=== PATIENT | male | born 1985 | race African-American/Black ===

== ENCOUNTER 2021-01-15 17:28 | Emergency (ER) | payer SELFPAY ==
[~2021-01-15] VITALS: Ht 190.5 cm; Wt 84.0 kg
[2021-01-15 18:15] VITALS: BP 167/88
[2021-01-15] MEDS ORDERED: LIDOCAINE 1% Multi-Dose 20 ML VIAL. ONE (19:12)
[2021-01-15] MEDS: cefTRIAXone IM 500 MG VIAL. IM ONE (19:17)
[2021-01-15] MEDS: AZITHROMYCIN 250 MG TABLET. PO ONE (19:18)
[2021-01-15] MEDS: metroNIDAZOLE 500 MG TABLET PO ONE (19:18)
--- NOTE | 2021-01-15 20:10 | PHYS DOC ---
General Adult EDM: Chief Complaint: SEXUALLY TRANSMITTED DISEASE HPI: HPI: Patient is a 35-year-old male who presents with STI concerns. Patient states that was told she had trichomoniasis and was just treated. Patient is requesting STD testing as well. Patient denies dysuria or discharge. Denies all symptoms. (RADHA CORDOBA APRN) Review of Systems: Review of Systems: Constitutional: Denies fever or chills Eyes: Denies change in visual acuity HENT: Denies nasal congestion or sore throat Respiratory: Denies cough or shortness of breath Cardiovascular: Denies chest pain or edema GI: Denies abdominal pain, nausea, vomiting, bloody stools or diarrhea : Denies dysuria Musculoskeletal: Denies back pain or joint pain Integument: Denies rash Neurologic: Denies headache, focal weakness or sensory changes Endocrine: Denies polyuria or polydipsia Lymphatic: Denies swollen glands Psychiatric: Denies depression or anxiety (RADHA CORDOBA APRN) Current Medications: Current Meds: Current Medications Medications (Trade) Dose Ordered Sig/Patricia Start Time Stop Time Status Last Admin Dose Admin Azithromycin (Zithromax) 1,000 mg 1X ONCE 01/15/21 19:00 01/15/21 19:20 DC 01/15/21 19:18 1,000 MG Ceftriaxone Sodium (Rocephin Im) 500 mg 1X ONCE 01/15/21 19:00 01/15/21 19:20 DC 01/15/21 19:17 500 MG Lidocaine HCl 20 ml STK-MED ONCE 01/15/21 19:12 01/15/21 19:12 DC Metronidazole (Flagyl) 2,000 mg 1X ONCE 01/15/21 19:00 01/15/21 19:20 DC 01/15/21 19:18 2,000 MG (RADHA CORDOBA APRN) Allergies: Allergies: Allergies Coded Allergies Type Severity Reaction Last Updated Verified No Known Drug Allergies 01/15/21 No (RADHA CORDOBA APRN) Physical Exam: PE: Constitutional: Well developed, well nourished, no acute distress, non-toxic appearance. [] HENT: Normocephalic, atraumatic, bilateral external ears normal, oropharynx moist, no oral exudates, nose normal. [] Eyes: PERRLA, EOMI, conjunctiva normal, no discharge. [] Neck: Normal range of motion, no tenderness, supple, no stridor. [] Cardiovascular:Heart rate regular rhythm, no murmur [] Lungs & Thorax: Bilateral breath sounds clear to auscultation [] Abdomen: Bowel sounds normal, soft, no tenderness, no masses, no pulsatile masses. [] Skin: Warm, dry, no erythema, no rash. [] Back: No tenderness, no CVA tenderness. [] Extremities: No tenderness, no cyanosis, no clubbing, ROM intact, no edema. [] Neurologic: Alert and oriented X 3, normal motor function, normal sensory function, no focal deficits noted. [] Psychologic: Affect normal, judgement normal, mood normal. [] (RADHA CORDOBA APRN) EKG: EKG: [] (RADHA CORDOBA APRN) Radiology/Procedures: Radiology/Procedures: [] (RADHA CORDOBA APRN) Heart Score: C/O Chest Pain: No Risk Factors: Risk Factors: DM, Current or recent (<one month) smoker, HTN, HLP, family history of CAD, obesity. Risk Scores: Score 0 - 3: 2.5% MACE over next 6 weeks - Discharge Home Score 4 - 6: 20.3% MACE over next 6 weeks - Admit for Clinical Observation Score 7 - 10: 72.7% MACE over next 6 weeks - Early Invasive Strategies (RADHA CORDOBA APRN) Course & Med Decision Making: Course & Med Decision Making Pertinent Labs and Imaging studies reviewed. (See chart for details) [] 35-year-old male presents with STI concerns. was just diagnosed with trichomonas and treated with antibiotics. Patient is requesting STD testing. Denies all symptoms. GC UA sent. Patient treated prophylactically with Rocephin, Flagyl, azithromycin (RADHA CORDOBA APRN) Dragon Disclaimer: Dragon Disclaimer: This electronic medical record was generated, in whole or in part, using a voice recognition dictation system. (RADHA CORDOBA APRN) Departure Departure: Impression: Primary Impression: Sexually transmitted disease (STD) Disposition: HOME / SELF CARE / HOMELESS Condition: STABLE Referrals: PCP,NO (PCP) Patient Instructions: Sexually Transmitted Disease, [id number] Additional Instructions: You are seen in the emergency room for STD testing. You were treated with Rocephin, Flagyl, azithromycin to treat you prophylactically for possible STDs. Refrain from having sex. Make sure all of your partners have been treated or you will be infected again. Return the emergency room if you have worsening symptoms or concerns EMERGENCY DEPARTMENT GENERAL DISCHARGE INSTRUCTIONS Thank you for coming to [facility] (ED) today and trusting us with you care. We trust that you had a positivie experience in our Emergency Department. If you wish to speak to the department management, you may call the director at [phone]. YOUR FOLLOW UP INSTRUCTIONS ARE FOLLOWS: 1. Do you have a private Doctor? If you do not have a private doctor, please ask for a resource list of physicians or clinics that may be able to assist you with follow up care. 2. The Emergency Physician has interpreted your x-rays. The X-Ray specialist will also review them. If there is a change in the findings, you will be notified in 48 hours when at all possible. 3. A lab test or culture has been done, your results will be reviewed and you will be notified if you need a change in treatment. ADDITIONAL INSTRUCTIONS AND INFORMATION: 1. Your care today has been supervised by a physician who is specially trained in emergency care. Many problems require more than one evaluation for a complete diagnosis and treatment. We recommend that you schedule your follow up appointment as recommended to ensure complete treatment of you illness or injury. If you are unable to obtain follow up care and continue to have a problem, or if your condition worsens, we recommend that you return to the ED. 2. We are not able to safely determine your condition over the phone nor are we able to give sound medical advice over the phone. For these safety reasons, if you call for medical advice we will ask you to come to the ED for further evaluation. 3. If you have any questions regarding these discharge instructions please call the ED at [phone]. SAFETY INFORMATION: In the interest of safety, wellness, and injury prevention; we encourage you to wear your sealbelt, if you smoke; quite smoking, and we encourage family to use a protective helmet for bicycling and other sporting events that present an increased risk for head injury. IF YOUR SYMPTOMS WORSEN OR NEW SYMPTOMS DEVELOP, OR YOU HAVE CONCERNS ABOUT YOUR CONDITION; OR IF YOUR CONDITION WORSENS WHILE YOU ARE WAITING FOR YOUR FOLLOW UP APPOINTMENT; EITHER CONTACT YOUR PRIMARY CARE DOCTOR, THE PHYSICIAN WHOSE NAME AND NUMBER YOU WERE GIVEN, OR RETURN TO THE ED IMMEDIATELY. Attending Signature Attending Signature I have participated in the care of this patient and I have reviewed and agree with all pertinent clinical information above including history, exam, and recommendations. (ROSA RODRIGUEZ MD) RADHA CORDOBA APRN Jan 15, 2021 20:10 ROSA RODRIGUEZ MD Jan 20, 2021 08:15
== END 2021-01-15 20:44 | disposition home or self-care (01) ==
LOC: ER 17:28
DX: A64 Unspecified sexually transmitted disease (principal)
CPT/HCPCS: 36415; 87491; 87591; 96372; 99283; J0696